=== PATIENT | female | born 2000 | race Caucasian/White ===

== ENCOUNTER 2018-11-11 16:10 | Emergency (ER) | payer BC, MEDICAID ==
[~2018-11-11] VITALS: Ht 167.6 cm; Wt 61.7 kg
[2018-11-11 16:16] VITALS: Ht 167.6 cm; Wt 61.7 kg
[2018-11-11 17:58] LABS: microscopic required? YES; urine erythrocyte 3+ (NEGATIVE)
[2018-11-11 18:02] LABS: BASOPHIL % 0.9 % (0-2); PLATELET COUNT 230 x10^3mcL (130-400); RED CELL DISTRIBUTION WIDTH 13.4 % (11.5-14.5)
[2018-11-11 19:47] VITALS: BP 115/60
== END 2018-11-11 19:47 | disposition home or self-care (01) ==
LOC: ED 16:10
PROVIDERS: Emergency Medicine
DX: O20.0 Threatened abortion (principal); O99.011 Anemia complicating pregnancy, first trimester; Z86.2 Personal history of diseases of the blood and blood-forming organs and certain disorders involving the immune mechanism
CPT/HCPCS: 36415